=== PATIENT | female | born 1985 | race Asian ===

== ENCOUNTER 2016-03-03 07:48 | Emergency (ER) | payer OTHER ==
[~2016-03-03] VITALS: Ht 152.4 cm; Wt 41.8 kg
[~2016-03-03 07:48] MED LIST: OMEP20TA86 PO; ONDA8TAB10 PO
[2016-03-03 07:54] VITALS: BP 115/75; PULSE 117; RESP 12; O2SAT 97
--- NOTE | 2016-03-03 08:49 | ED.REPORT ---
BQX-Dpa-Xorb Illness Date of Service Mar 03, 2016 ED Provider: Jaci Schreiber MD Pt is 30 y/o female presenting to the ED c/o flu-like symptoms onset yesterday. She c/o sore throat, fever, myalgias, nasal congestion, cough. She went to Urgent Care at which time they gave her an inhaler and Tessalon Perles. She was not tested for the flu at that point. Her last Tylenol dose was 8 hours ago. She denies N/V/D. She has been able to eat and drink normally. Nursing Notes Stated Complaint: SORE THROAT Chief Complaint: FLU/Cold Symptoms Nursing Notes Reviewed: Yes Allergies: Coded Allergies: No Known Allergies (Verified Allergy, Unknown, 02/10/15) General Time Seen by Provider: 08:57 Chief Complaint Body aches, Fatigue Hx Obtained From: Patient Arrived By: Walk-in Onset Occurred: Yesterday Symptom Duration: Since onset Progression Since Onset: Constant Quality: Aching (diffuse) Severity: Current: Mild Severity: Maximum: Mild Recent Healthcare: Recent doctor visit Similar Sx Previous: No Past Medical History Past Medical History with 3 premature vaginal deliveies, one as recent as 4 weeks GERD Biliary colic Past Surgical History sinus surgery tubal ligation Smoking History Never Smoker Social History Alcohol Use: Denies alcohol use Drug Use: Denies drug use Other Social History: Good social support, , Lives with children, Local resident Occupation lives with parents Ambulatory Status Independent Review of Systems Constitutional: Reports: Chills, Fatigue, Fever, Malaise, Weakness - generalized Ears / Nose / Throat: Reports: Nasal congestion, Sore throat Respiratory: Reports: Non-productive cough GI: Denies: Diarrhea, Nausea, Vomiting Musculoskeletal: Reports: Myalgia Complete sys rev & neg: except as marked. Physical Exam Initial Vital Signs Vital Signs (First) Date Time Temp Pulse Resp B/P Pulse Ox O2 Delivery O2 Flow Rate FiO2 03/03/16 07:54 37.4 117 12 115/75 97 Room Air Initial VS: Reviewed, Vital signs abnormal Abdomen / GI: Soft, Non-tender, No guarding, No rebound, No distention Extremities: Vascular intact, Neuro intact, No swelling, No tenderness Psychiatric: Mood/affect normal, Behavior normal, Normal thought content General/Constitutional: Awake, Alert Appearance / Presentation: Positive: Ill appearing/not toxic (acute), Uncomfortable Febrile Neck: Atraumatic, Supple, No meningismus, Full range of motion Respiratory / Chest: Atraumatic, Breath sounds NL, Breath sounds = bilat, No respiratory distress, No rales, No rhonchi, No wheezing, No retractions Tachypneic Cardiovascular: Regular rhythm, No gallop, No rubs, Cap refill not delayed, Peripheral circulation NL Heart Rate / Rhythm: Positive: Tachycardia Heart Sounds / Murmur: Positive: Systolic murmur present.. (IV/) Skin: Atraumatic, Warm, Dry, Intact Neurologic: Oriented X3, Speech NL, No motor deficits, No sensory deficits Head / Eyes: Atraumatic, Normocephalic Pupils injected bilaterally ENT: Atraumatic, Airway patent, Mucous membranes moist, Pharynx NL Interpretation & Diagnostics Lab Results Interpretation Result Diagram: 03/03/16 0938 03/03/16 0938 Test 03/03/16 09:38 03/03/16 09:50 White Blood Count 6.1th/mm3 (3.8-10.1) Red Blood Count 4.43mil/mm3 (3.90-5.20) Hemoglobin 12.8g/dL (12.0-15.6) Hematocrit 38.5% (35.0-46.0) Mean Corpuscular Volume 86.9fL (81-100) Mean Corpuscular Hemoglobin 28.9pg (27.0-35.0) Mean Corpuscular Hemoglobin Concent 33.2% (32.0-37.0) Red Cell Distribution Width 12.6% (12.3-15.4) Platelet Count 187bil/L (150-400) Neutrophils (%) (Auto) 88.4% (40-74) Lymphocytes (%) (Auto) 6.6% (14-46) Monocytes (%) (Auto) 4.6% (4-12) Eosinophils (%) (Auto) 0% (0-5) Basophils (%) (Auto) 0.2% (0-3) Sodium Level 133mEq/L (134-144) Potassium Level 3.5mEq/L (3.5-5.2) Chloride Level 96mEq/L (97-108) Carbon Dioxide Level 23mmol/L (18-29) Blood Urea Nitrogen 8mg/dL (6-20) Creatinine 0.43mg/dL (0.57-1.00) Estimat Glomerular Filtration Rate 244mL/min (>59) Glucose Level 114mg/dL (60-99) Calcium Level 8.8mg/dL (8.5-10.1) Magnesium Level 1.8mg/dL (1.6-2.6) Total Bilirubin 0.4mg/dL (0.0-1.2) Aspartate Amino Transf (AST/SGOT) 15U/L (0-50) Alanine Aminotransferase (ALT/SGPT) 10U/L (0-32) Alkaline Phosphatase 68U/L (25-150) Total Protein 7.8g/dL (6.4-8.4) Albumin 4.5g/dL (3.4-5.0) Lab Results Interpretation: Rapid strep negative ECG Interpretation ECG Interpretation: Sinus tachycardia rate 115 Nonspecific T wave changes Time: 09:23 Interpreted by: ED physician Normal ECG Interpretation: No acute ischemic changes X-Ray Chest Interpretation Chest Xray Interpretation: IMPRESSION: No acute cardiopulmonary disease process. Dictated by: Elva Miramontes MD, PhD on 03/03/2016 at 9:42 Approved by: Elva Miramontes MD, PhD on 03/03/2016 at 9:42 View: Portable, 1 view Interpretation / Wet Read by: Interpret - Radiologist Re-Evaluation & MDM Re-Evaluation/Progress : Time of Eval: 11:00 Patient Status: Condition improved, Moderate relief Re-Evaluation/Progress Note: Pt rechecked. Remains slightly tachycardic. Breath sounds normal. Informed pt of plan for treatment. Pt understands and agrees with plan for treatment. F/U and RTER warnings given. All questions addressed. Counseled Regarding: Diagnosis, Lab results, Need for follow-up, When/why to return to ED Patient Discharge & Departure Impression: Primary Impression: Influenza A Ruled Out: Sepsis Disposition: Home Discharge Condition All VS Reviewed: Yes Condition: Stable Patient Instructions: Influenza (ED) Additional Instructions: You have Influenza A. Your chest x-ray was normal. There is no sign of pneumonia. Your white blood cell count, a marker for infection, was not elevated today and I believe it is appropriate for you to go home. I recommend you take 1 Tylenol and half a Percocet every 6 hours as needed for cough or body aches. Return to the emergency department if you develop a high fever, persistent vomiting, you feel extremely weak, or for any other concerning signs or symptoms. Follow-up with a primary care doctor next week. Referrals: Viry Cazares DO (PCP) Luis Angel Attestation Portions of this note were transcribed by Caesar Page. I, Dr. Schreiber personally performed the history, physical exam and medical decision-making; I reviewed and confirmed the accuracy of the information in the transcribed note. Signed by Luis Angel Reddy, 03/03/16 - [id number] copies to: Viry Cazares Shawna L MD Mar 03, 2016 08:49 CAESAR PAGE Mar 03, 2016 08:58
[2016-03-03] MEDS ORDERED: 0.9% Sodium Chloride 1,000 ML IV ONE ×2 (08:59→09:00)
[2016-03-03] MEDS ORDERED: Ondansetron 2 mg/mL 2 mL Inj IVPUSH ONE (09:00)
[2016-03-03] MEDS ORDERED: oxyCODONE-Acetamin 5-325 mg Tablet PO ONE (09:00)
--- NOTE | 2016-03-03 09:44 | DRSVH ---
PROCEDURE: X-RAY CHEST ONE VIEW, PORTABLE ([id number]) INDICATIONS: cough TECHNIQUE: One view of the chest was acquired. COMPARISON: None. FINDINGS: Surgical changes and devices: None. Lungs and pleura: No pleural effusions or pneumothorax. Lungs are clear. Mediastinum: Mediastinal contours appear normal. Heart size is normal. Bones and chest wall: No suspicious bony lesions. Overlying soft tissues appear unremarkable. IMPRESSION: No acute cardiopulmonary disease process. Dictated by: Elva Miramontes MD, PhD on 03/03/2016 at 9:42 Approved by: Elva Miramontes MD, PhD on 03/03/2016 at 9:42
[2016-03-03 09:57] VITALS: BP 107/69; PULSE 116; RESP 20; O2SAT 100
[2016-03-03 09:58] LABS: BASOPHILS % (AUTO) 0.2 % (0-3); EOSINOPHILS % (AUTO) 0 % (0-5); MONOCYTES % (AUTO) 4.6 % (4-12); Mean Corpuscular Hemoglobin 28.9 pg (27.0-35.0); Mean Corpuscular Volume 86.9 fL (81-100); NEUTROPHILS % (AUTO) 88.4 % (40-74); Platelet Count 187 bil/L (150-400)
[2016-03-03 10:53] VITALS: BP 107/64; PULSE 110; RESP 24; O2SAT 95
[2016-03-03 10:57] LABS: Magnesium 1.8 mg/dL (1.6-2.6)
[2016-03-03] MEDS ORDERED: OXYC1TAB24 PO (11:08)
[2016-03-03 12:37] VITALS: BP 87/42; PULSE 102; RESP 14; O2SAT 97
== END 2016-03-03 12:20 | disposition home or self-care (01) ==
LOC: SED 07:48
DX: J10.89 Influenza due to other identified influenza virus with other manifestations (principal); K21.9 Gastro-esophageal reflux disease without esophagitis
CPT/HCPCS: 36415; 71010; 80053; 83735; 85025; 87804; 87880; 93005; 96361; 96374; 99285; J2405; J7030

== ENCOUNTER 2016-05-23 22:59 | Emergency (ER) | payer OTHER ==
[~2016-05-23] VITALS: Ht 152.4 cm; Wt 40.5 kg
[~2016-05-23 22:59] MED LIST changes: -OMEP20TA86 PO; -ONDA8TAB10 PO; +OXYC1TAB24 PO
[2016-05-23 23:01] VITALS: BP 123/75; PULSE 74; RESP 20; O2SAT 99
--- NOTE | 2016-05-23 23:14 | ED.REPORT ---
HPI-Abd Pain F Under 40 Date of Service May 23, 2016 ED Provider: Darin Desir MD Patient is a 31 year old female with a history of GERD and known gallstones presents to the ED complaining of epigastric abdominal pain that began at 8pm tonight. The patient describes the pain as sharp and constant. She reports that the pain was present briefly yesterday but it resolved. Her pain is similar to what she has previously experienced with biliary colic. The patient did not recently eat any excessively fatty foods for dinner, only consuming chicken and rice. She denies nausea or vomiting. Patient denies constipation, bloody or tarry stool, diarrhea, or dysuria. Nursing Notes Stated Complaint: STOMACH PAIN Chief Complaint: Female Abdominal Pain Nursing Notes Reviewed: Yes Allergies: Coded Allergies: No Known Allergies (Verified Allergy, Unknown, 02/10/15) Scheduled Omeprazole (Omeprazole) 20 Mg Tablet.dr 20 MG PO BID Scheduled PRN oxyCODONE-Acetaminophen 5-325 mg (oxyCODONE-Acetaminophen 5-325 mg) 1 Each Tablet 0.5-1 TAB PO Q6H PRN PRN For Pain for severe body aches and cough General Time Seen by MD: 23:14 Chief Complaint Abdominal pain Hx Obtained From: Patient Arrived By: Walk-in Sudden in Onset?: No Onset Occurred: 1 - 4 hours ago Symptom Duration: Since onset Location: : Epigastric Quality: Painful, Sharp Severity: Current: Moderate Severity: Maximum: Severe Similar Sx Previous: Yes Past Medical History Past Medical History with 3 premature vaginal deliveies, one as recent as 4 weeks GERD Biliary colic Past Surgical History sinus surgery tubal ligation Smoking History Never Smoker Social History Alcohol Use: Denies alcohol use Drug Use: Denies drug use Other Social History: Good social support, , Lives with children, Local resident Occupation lives with parents Ambulatory Status Independent Review of Systems GI: Reports: Abdominal pain, Denies: Bloody/tarry stool, Constipation, Diarrhea, Nausea, Vomiting Female: Denies: Dysuria, Pelvic pain Complete sys rev & neg: except as marked. Physical Exam Initial Vital Signs Vital Signs (First) Date Time Temp Pulse Resp B/P Pulse Ox O2 Delivery O2 Flow Rate FiO2 05/23/16 23:01 36.3 74 20 123/75 99 Room Air Initial VS: Reviewed Head / Eyes: Atraumatic, Normocephalic, PERRL ENT: Mucous membranes moist, Conjunctiva normal, No scleral icterus Neck: Supple, Non-tender, Full range of motion Extremities: No swelling, No tenderness Skin: Warm, Dry, No cyanosis Neurologic: Alert, Oriented, Nonfocal Psychiatric: Mood/affect normal, Behavior normal, Normal thought content General/Constitutional: Awake, Alert, No acute distress, Well hydrated Respiratory / Chest: Breath sounds NL, Breath sounds = bilat, No respiratory distress, No rales, No rhonchi, No wheezing Cardiovascular: Heart rate NL, Regular rhythm, Heart sounds NL, No murmurs Abdomen: Soft, BS normoactive Tenderness/Guarding/Rebound: Positive: Tender epigastric (slightly reactive to palpation) Back: No midline vertebral tend, No CVA tenderness Interpretation & Diagnostics Lab Results Interpretation Result Diagram: 05/23/16 2330 05/23/16 2330 Test 05/23/16 23:30 05/23/16 23:47 White Blood Count 7.3th/mm3 (3.8-10.1) Red Blood Count 4.06mil/mm3 (3.90-5.20) Hemoglobin 11.9g/dL (12.0-15.6) Hematocrit 35.4% (35.0-46.0) Mean Corpuscular Volume 87.2fL (81-100) Mean Corpuscular Hemoglobin 29.3pg (27.0-35.0) Mean Corpuscular Hemoglobin Concent 33.6% (32.0-37.0) Red Cell Distribution Width 13.3% (12.3-15.4) Platelet Count 241bil/L (150-400) Neutrophils (%) (Auto) 64.0% (40-74) Lymphocytes (%) (Auto) 25.7% (14-46) Monocytes (%) (Auto) 6.4% (4-12) Eosinophils (%) (Auto) 3.5% (0-5) Basophils (%) (Auto) 0.4% (0-3) Sodium Level 140mEq/L (134-144) Potassium Level 3.6mEq/L (3.5-5.2) Chloride Level 103mEq/L (97-108) Carbon Dioxide Level 24mmol/L (18-29) Blood Urea Nitrogen 13mg/dL (6-20) Creatinine 0.41mg/dL (0.57-1.00) Estimat Glomerular Filtration Rate 256mL/min (>59) Glucose Level 136mg/dL (60-99) Calcium Level 9.1mg/dL (8.5-10.1) Magnesium Level 2.0mg/dL (1.6-2.6) Total Bilirubin 0.3mg/dL (0.0-1.2) Aspartate Amino Transf (AST/SGOT) 12U/L (0-50) Alanine Aminotransferase (ALT/SGPT) 7U/L (0-32) Alkaline Phosphatase 54U/L (25-150) Total Protein 7.2g/dL (6.4-8.4) Albumin 4.0g/dL (3.4-5.0) Lipase 39U/L (13-60) Hold Philip Top Tube Received (Received) Urine Color Straw (YELLOW) Urine Appearance Clear (CLEAR,HAZY) Urine pH 7.0 (5.0-8.0) Urine Specific [place] 1.015 (1.003-1.035) Urine Protein Negativemg/dL (NEG,TRACE) Urine Glucose (UA) Negativemg/dL (NEGATIVE) Urine Ketones Negativemg/dL (NEGATIVE) Urine Occult Blood Trace (NEGATIVE) Urine Nitrite Negative (NEGATIVE) Urine Bilirubin Negative (NEGATIVE) Urine Urobilinogen Normalmg/dL (NORMAL) Urine Leukocyte Esterase Negative (NEGATIVE) Urine RBC 0-2/hpf (0-2) Urine WBC 0-5/hpf (0-5) Urine Epithelial Cells Few/hpf (NONE-MOD) Urine Crystals None seen (NONE SEEN) Urine Bacteria None/hpf (NONE-FEW) Urine Hyaline Casts None/lpf (NONE) Urine Granular Casts None seen (NONE SEEN) Urine Waxy Casts None seen (NONE SEEN) Urine Red Blood Cell Casts None seen (NONE SEEN) Urine White Blood Cell Casts None seen (NONE SEEN) Urine Mucus None seen (None Seen) Urine Trichomonas None seen (NONE SEEN) Urine Yeast None (NONE SEEN) Urinalysis Comment None Urine Culture Reflexed Not indicated Re-Eval/Medical Decision Med Decision/Clinical Course Med Decision/Clinical Course: 31-year-old presents with epigastric pain, seeming to her similar to prior biliary colic episodes. These are resolved here after a period of observation and fluids and meds. She needs evaluation for elective cholecystectomy. Follow-up with PCP. Fasting a.m. exam ultrasound to be arranged. Discharged home on omeprazole, Zofran when necessary, and follow up with PCP. Source of Hx: Old records Re-Evaluation/Progress : Time of Eval: 02:36 Patient Status: Condition improved Re-Evaluation/Progress Note: Rechecked the patient, who feels much improved. Labs did not show any acute process. Patient understands and agrees with the plan to be discharged home. Discharge instructions and follow-up discussed. All questions were addressed. Return to the ED warnings given. Counseled Regarding: Diagnosis, Lab results, Need for follow-up, When/why to return to ED Discharge & Departure Primary Impression: Epigastric abdominal pain Additional Impressions: Biliary colic Gastritis Disposition: Home Discharge Condition All VS Reviewed: Yes Condition: Stable Patient Instructions: Biliary Colic (ED), Gastritis (ED) Additional Instructions: Begin on omeprazole twice daily for two weeks, then daily after that. Follow-up with your doctor in the office. Very low fat diet for now. You will need a fasting morning ultrasound, this next week if possible. Arrange that with your primary care doctor. Return if any immediate issues. Referrals: Viry Cazares DO (PCP) Luis Angel Attestation Portions of this note were transcribed by Gosia Garces. I, Dr. Desir personally performed the history, physical exam and medical decision-making; I reviewed and confirmed the accuracy of the information in the transcribed note. Signed by: Luis Angel Jeffery, 05/24/2016 0239 copies to: Viry Cazares Christopher W MD May 23, 2016 23:14 Gosia Garces May 23, 2016 23:26
[2016-05-23] MEDS ORDERED: 0.9% Sodium Chloride 1,000 ML IV ONE (23:27)
[2016-05-23] MEDS ORDERED: Ondansetron 2 mg/mL 2 mL Inj IVPUSH ONE (23:30)
[2016-05-23] MEDS ORDERED: Pantoprazole 4 mg/mL 10 mL Inj IVPUSH ONE (23:30)
[2016-05-23] MEDS ORDERED: Ketorolac 15 mg/mL Inj IVPUSH ONE (23:30)
[2016-05-23 23:44] LABS: BASOPHILS % (AUTO) 0.4 % (0-3); EOSINOPHILS % (AUTO) 3.5 % (0-5); MONOCYTES % (AUTO) 6.4 % (4-12); Mean Corpuscular Hemoglobin 29.3 pg (27.0-35.0); Mean Corpuscular Volume 87.2 fL (81-100); Platelet Count 241 bil/L (150-400)
[2016-05-23 23:54] LABS: APPEARANCE,URINE CLEAR (CLEAR,HAZY); COLOR,URINE STRAW (YELLOW); OCCULT BLOOD,URINE TRACE (NEGATIVE)
[2016-05-23 23:55] LABS: UROBILINOGEN,URINE NORMAL (NORMAL)
[2016-05-24] MEDS ORDERED: OMEP20TA86 PO (02:34)
[2016-05-24 03:00] VITALS: BP 99/66; PULSE 77; RESP 16; O2SAT 100
== END 2016-05-24 02:50 | disposition home or self-care (01) ==
LOC: SED 22:59
DX: R10.13 Epigastric pain (principal); K80.50 Calculus of bile duct without cholangitis or cholecystitis without obstruction; K29.70 Gastritis, unspecified, without bleeding; K21.9 Gastro-esophageal reflux disease without esophagitis
CPT/HCPCS: 36415; 80053; 81000; 81025; 83690; 83735; 85025; 96361; 96374; 96375; 99285; J1885; J2405; J7030

== ENCOUNTER 2016-08-22 03:02 | Emergency (ER) | payer OTHER ==
[~2016-08-22] VITALS: Ht 152.4 cm; Wt 41.4 kg
[~2016-08-22 03:02] MED LIST changes: +OMEP20TA86 PO
[2016-08-22 03:05] VITALS: BP 108/59; PULSE 85; RESP 18; O2SAT 98
[2016-08-22 03:14] LABS: BASOPHILS % (AUTO) 0.4 % (0-3); EOSINOPHILS % (AUTO) 7.3 % (0-5); MONOCYTES % (AUTO) 6.9 % (4-12); Mean Corpuscular Volume 86.9 fL (81-100); NEUTROPHILS % (AUTO) 37.5 % (40-74); Platelet Count 199 bil/L (150-400)
[2016-08-22] MEDS ORDERED: 0.9% Sodium Chloride 1,000 ML IV ONE ×2 (03:50→08:40)
--- NOTE | 2016-08-22 03:59 | ED.REPORT ---
HPI-Abd Pain F Under 40 Date of Service Aug 22, 2016 ED Provider: Quincy Christianson MD Pt is a 31 year old female with a history of tubal ligation, GERD, and gallstones who presents to the ED via EMS complaining of sudden LLQ abdominal pain. She c/o associated diaphoresis and weakness. She denies dysuria, back pain , nausea, vomiting, diarrhea, and constipation. Pt denies alcohol use. She reports that her last menstruation was 07/08/16 and that it is 10 days late. Nursing Notes Stated Complaint: ABDOMINAL PAIN Chief Complaint: Female Abdominal Pain Nursing Notes Reviewed: Yes Allergies: Coded Allergies: No Known Allergies (Verified Allergy, Unknown, 08/22/16) Scheduled Omeprazole (Omeprazole) 20 Mg Tablet.dr 20 MG PO BID Scheduled PRN oxyCODONE-Acetaminophen 5-325 mg (oxyCODONE-Acetaminophen 5-325 mg) 1 Each Tablet 0.5-1 TAB PO Q6H PRN PRN For Pain for severe body aches and cough General Time Seen by MD: 03:48 Chief Complaint Abdominal pain Hx Obtained From: Patient Arrived By: Walk-in Sudden in Onset?: Yes Onset Occurred: Just prior to arrival Symptom Duration: Since onset Location: : Diffuse Quality: Painful Radiation: : Does not radiate Severity: Current: Moderate Severity: Maximum: Moderate Recent Healthcare: Recent doctor visit Similar Sx Previous: No Past Medical History Past Medical History with 3 premature vaginal deliveies, one as recent as 4 weeks GERD Biliary colic Past Surgical History Sinus surgery Tubal ligation - 2014 Smoking History Never Smoker Social History Alcohol Use: Denies alcohol use Drug Use: Denies drug use Other Social History: Good social support, , Lives with children, Local resident Occupation lives with parents Ambulatory Status Independent Review of Systems Constitutional: Reports: Weakness - generalized GI: Reports: Abdominal pain, Denies: Constipation, Diarrhea, Nausea, Vomiting Female: Denies: Dysuria Musculoskeletal: Denies: Back pain Complete sys rev & neg: except as marked. Skin: Reports Diaphoresis Physical Exam Initial Vital Signs Vital Signs (First) Date Time Temp Pulse Resp B/P Pulse Ox O2 Delivery O2 Flow Rate FiO2 08/22/16 03:05 36.6 85 18 108/59 98 Room Air Initial VS: Reviewed, Vital signs normal Head / Eyes: Atraumatic, Normocephalic Neck: Supple, Full range of motion Extremities: Vascular intact, Neuro intact Skin: Warm, Dry, No cyanosis Neurologic: Alert, Oriented, Nonfocal Psychiatric: Mood/affect normal, Behavior normal General/Constitutional: Awake, Alert, Cooperative Appearance / Presentation: Positive: Pale Respiratory / Chest: Atraumatic, Breath sounds NL, Breath sounds = bilat Cardiovascular: Heart rate NL, Regular rhythm, Heart sounds NL Abdomen: Atraumatic, Soft Bilateral tenderness in lower abdomen to deep palpation. Back: Atraumatic, Full range of motion Interpretation & Diagnostics Lab Results Interpretation Result Diagram: 08/22/16 0305 08/22/16 0305 Test 08/22/16 03:05 08/22/16 04:25 White Blood Count 5.2th/mm3 (3.8-10.1) Red Blood Count 4.28mil/mm3 (3.90-5.20) Hemoglobin 12.4g/dL (12.0-15.6) Hematocrit 37.2% (35.0-46.0) Mean Corpuscular Volume 86.9fL (81-100) Mean Corpuscular Hemoglobin 29.0pg (27.0-35.0) Mean Corpuscular Hemoglobin Concent 33.3% (32.0-37.0) Red Cell Distribution Width 13.8% (12.3-15.4) Platelet Count 199bil/L (150-400) Neutrophils (%) (Auto) 37.5% (40-74) Lymphocytes (%) (Auto) 47.7% (14-46) Monocytes (%) (Auto) 6.9% (4-12) Eosinophils (%) (Auto) 7.3% (0-5) Basophils (%) (Auto) 0.4% (0-3) Sodium Level 138mEq/L (134-144) Potassium Level 4.1mEq/L (3.5-5.2) Chloride Level 103mEq/L (97-108) Carbon Dioxide Level 19mmol/L (18-29) Blood Urea Nitrogen 13mg/dL (6-20) Creatinine 0.38mg/dL (0.57-1.00) Estimat Glomerular Filtration Rate 279mL/min (>59) Glucose Level 96mg/dL (60-99) Calcium Level 9.1mg/dL (8.5-10.1) Magnesium Level 2.0mg/dL (1.6-2.6) Total Bilirubin 0.4mg/dL (0.0-1.2) Aspartate Amino Transf (AST/SGOT) 13U/L (0-50) Alanine Aminotransferase (ALT/SGPT) 8U/L (0-32) Alkaline Phosphatase 51U/L (25-150) Total Protein 7.4g/dL (6.4-8.4) Albumin 4.5g/dL (3.4-5.0) Lipase 41U/L (13-60) HCG Beta Subunit 6652mIU/mL Hold Urine Received (Received) Lab values outside NL range: no clinical significance. Re-Eval/Medical Decision Med Decision/Clinical Course 31-year-old female with a history of bilateral tubal ligation presents with lower abdominal pain she is found to be with a beta hCG of 6652. Ultrasound was ordered to rule out ectopic. Her care is now bringing turned over at change of shift to Dr. Simon Ceja. Source of Hx: Old records Re-Evaluation/Progress : Time of Eval: 05:22 )( Re-Eval Abdomen: Soft Re-Evaluation/Progress Note: Pt rechecked. Informed pt of results and plan for US. Pt understands agrees with plan for US. All questions addressed. Counseled Regarding: Diagnosis, Lab results Discharge & Departure Shift Change Sign-Out Patient Care Transferred: Yes Discussed Complaint(s): Yes Discharge Condition All VS Reviewed: Yes Condition: Stable Referrals: Viry Cazares DO (PCP) Care Transferred to: Dr. Ceja Care Transferred at: 06:00 Luis Angel Attestation Portions of this note were transcribed by Sindy Proctor. I, Dr. Christianson personally performed the history, physical exam and medical decision-making; I reviewed and confirmed the accuracy of the information in the transcribed note. Signed by: Luis Angel Rice, 08/22/16 and 05:30. copies to: Viry Cazares Howard L MD Aug 22, 2016 03:59 Sindy Thompson Aug 22, 2016 04:21
[2016-08-22 05:36] VITALS: BP 98/52; PULSE 81; RESP 15; O2SAT 98
[2016-08-22 08:38] VITALS: BP 98/66; PULSE 88; O2SAT 99
--- NOTE | 2016-08-22 09:37 | PCM.HPOB ---
Subjective Date of Service: Aug 22, 2016 Referring Provider: Admitting Physician: Primary Care Physician: Viry Cazares DO Attending Physician: Chief Complaint Abdominal pain History of Present History of Present Illness 31 y S/P Tubal ligation 2014 LMP June 2016 Presented to ED vis EMS for sudden onset LLQ pain associated diaphoresis and weakness. History of vaginal spotting couple of days ago. Beta HCG 6652, Ultrasound positive for ectopic with heart rate 130's. Patient denies pain at this time while at rest. History of GERD symptoms X5-7 years, improves with Maalox, no endoscopy. OB History: (3), Para (3 () ) Past Medical History Gynecologic History: Menarche at age 11 regular cycles, no H/O STI. Medical History: GERD Possible Gallbladder disease Surgical History: Bartholin cyst excisions. Sinuses surgery tubal ligation 2014 Smoking Status: Never Smoker Hx Alcohol Use: No Hx Substance Use: No Past Family History Family History Father: DM and stroke. Otherwise healthy first degree relatives. Allergy Coded Allergies: No Known Allergies (Verified Allergy, Unknown, 08/22/16) Exam Vital Signs Vital Signs Date Time Temp Pulse Resp B/P Pulse Ox O2 Delivery O2 Flow Rate FiO2 08/22/16 08:38 88 98/66 99 Room Air 08/22/16 05:36 81 15 98/52 98 Room Air 08/22/16 03:05 36.6 85 18 108/59 98 Room Air Constitutional: Well-developed Lungs: Clear to Auscultation Heart: Regular Rate/Rhythm, Normal S1, Normal S2 Abdomen: Soft, Other (Tender to deep palpation bilaterally , no rebound tenderness, no gaurding. ) Extremities: Pulses Palpable x4 Neurological/Psychiatric: Alert, Oriented X3, Cooperative Neuro: Reflexes 2+ Labs/Diagnostics Maternal Blood Type: B (positive ) Additional Information Laboratory Tests 72 Hours Test 08/22/16 03:05 08/22/16 04:25 White Blood Count 5.2th/mm3 (3.8-10.1) Red Blood Count 4.28mil/mm3 (3.90-5.20) Hemoglobin 12.4g/dL (12.0-15.6) Hematocrit 37.2% (35.0-46.0) Mean Corpuscular Volume 86.9fL (81-100) Mean Corpuscular Hemoglobin 29.0pg (27.0-35.0) Mean Corpuscular Hemoglobin Concent 33.3% (32.0-37.0) Red Cell Distribution Width 13.8% (12.3-15.4) Platelet Count 199bil/L (150-400) Neutrophils (%) (Auto) 37.5% (40-74) Lymphocytes (%) (Auto) 47.7% (14-46) Monocytes (%) (Auto) 6.9% (4-12) Eosinophils (%) (Auto) 7.3% (0-5) Basophils (%) (Auto) 0.4% (0-3) Sodium Level 138mEq/L (134-144) Potassium Level 4.1mEq/L (3.5-5.2) Chloride Level 103mEq/L (97-108) Carbon Dioxide Level 19mmol/L (18-29) Blood Urea Nitrogen 13mg/dL (6-20) Creatinine 0.38mg/dL (0.57-1.00) Estimat Glomerular Filtration Rate 279mL/min (>59) Glucose Level 96mg/dL (60-99) Calcium Level 9.1mg/dL (8.5-10.1) Magnesium Level 2.0mg/dL (1.6-2.6) Total Bilirubin 0.4mg/dL (0.0-1.2) Aspartate Amino Transf (AST/SGOT) 13U/L (0-50) Alanine Aminotransferase (ALT/SGPT) 8U/L (0-32) Alkaline Phosphatase 51U/L (25-150) Total Protein 7.4g/dL (6.4-8.4) Albumin 4.5g/dL (3.4-5.0) Lipase 41U/L (13-60) HCG Beta Subunit 6652mIU/mL Hold Urine Received (Received) OB Intrapartum Assessment/Plan Assessment 31 Y Ectopic with positive heart rate 130's and beta hcg Quant 6652. and small amount of free fluid. (final report is pending) S/P Tubal ligation 2014 H/O GERD X5-7 years Discussed medical vs surgical treatment. Patient desires surgical intervention. Secondary to inadequate staffing will need to transfer to hospitals with adequate capacity. Transfer is required because I do not have qualified assistant operator for safe completion of the surgery and I do not have ob floor converge and I do have two patients in active labor with heart tone abnormalities that needs close monitoring with potential CD. [facility], , gratefully accepted the transfer. Patient will transferred to [place] ED. . Bernie Plasencia MD Aug 22, 2016 09:18
[2016-08-22 09:43] VITALS: BP 96/60; PULSE 70; O2SAT 98
--- NOTE | 2016-08-22 10:30 | DRSVH ---
PROCEDURE: US OB<14 WKS INDICATIONS: pelvic pain, prev. BTL, CG 6652. OUTSIDE/PRIOR DATING DATA: Last menstrual period (LMP): 07/08/16. TECHNIQUE: Real-time scanning was performed of the fetus and maternal pelvic organs, with image documentation. COMPARISON: Pelvic ultrasound 07/12/16. FINDINGS: Embryo: There is a visualized right adnexal extrauterine gestation with yolk sac visualized and cardiac activity detected at that site measuring 137 beats per minute. [place]-rump length is 5.9 mm. The patient reports prior tubal ligation in 2014. Measurement variability in dating: +/- 4 weeks by LMP, +/- 7 days by mean sac diameter (use before 6 weeks gestation if crown-rump length not able to be measured), +/- 5 days by crown-rump length (up t o 8 weeks 6 days gestation), +/- 7 days by crown-rump length (up to 13 weeks 6 days gestation). Maternal organs: Left ovary normal, scattered uterine fibroids.. Limited images through the kidneys demonstrate no hydronephrosis. IMPRESSION: The patient reports prior tubal ligation in 2014. There is a single living extrauterine gestation at the right adnexa, with crown-rump length only 6 mm, and no evidence of adjacent hemorrha ge either localized or within the peritoneal space is seen. This information regarding right adnexal ectopic was immediately conveyed to the ordering physician caring for the patient in the e mergency room at 08:29 after completion of the examination. Dictated by: Nate Marc M.D. on 08/22/2016 at 10:22 Approved by: Nate Marc M.D. on 08/22/2016 at 10:28
[2016-08-22] MEDS ORDERED: 0.9% Sodium Chloride 1,000 ML IV SCH (11:10)
[2016-08-22 11:26] VITALS: BP 105/60; PULSE 92; RESP 16; O2SAT 100
== END 2016-08-22 11:41 | disposition short-term general hospital (02) ==
LOC: SED 03:02
DX: O00.90 Unspecified ectopic pregnancy without intrauterine pregnancy (principal); K21.9 Gastro-esophageal reflux disease without esophagitis
CPT/HCPCS: 36415; 76801; 80053; 81025; 83690; 83735; 84702; 85025; 86850; 96360; 96361; 99285; J7030